=== PATIENT | male | born 2000 | race Caucasian/White ===

== ENCOUNTER 2022-01-04 11:20 | Emergency (ER) | payer BC, OTHER, SELFPAY ==
[2022-01-04 11:35] VITALS: BP 112/72; PULSE 77; RESP 12; TEMP 36.4; O2SAT 97; BMI 21.9
--- NOTE | 2022-01-04 11:48 | ED.GENADULT ---
HPI - General Adult General Time Seen by Provider: 11:48 Date Seen: 01/04/22 Chief complaint: Urogenital Problems, Male Stated complaint: Lump on genitals Time Seen by Provider: 01/04/22 11:43 Source: patient History of Present Illness HPI narrative: Buck is a 21 year old male with no past medical history, who presents to the ED with urogenital problem. 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 Is sexually active on Tuesday with a known partner, he was wearing condom protection. He had a similar lesion in 2019 out on his left side, that one has not been tender. they told him not to worry about it. this one is tender, palpation. Pain radiates up into his right groin area. There is some associated swelling but no redness. Patient denies any back pain, fevers, chills myalgias arthralgias. He has been taking ibuprofen for this. Related Data Previous Rx's Medication Instructions Recorded doxycycline monohydrate 100 mg 100 mg PO BID 10 days #20 caps 01/04/22 capsule Allergies Allergy/AdvReac Type Severity Reaction Status Date / Time amoxicillin Allergy Unknown Verified 01/04/22 11:40 Penicillins Allergy Unknown Verified 01/04/22 11:40 Review of Systems Status of ROS: Reports: 10 or more systems reviewed and unremarkable except as noted in History and below PFSH PFS Social History Smoking Status: Current every day smoker Do you use any of these nicotine containing products: Vaping Products How often do you have a drink containing alcohol: never AUDIT-C Alcohol total score: 0 Non-prescribed substance use: former substance user and marijuana (any form) Exam Narrative: Exam Narrative: General: No apparent distress, sitting comfortably HEENT: Pupils equal round reactive to light Lungs: Clear to auscultation bilaterally Heart: S1-S2 normal sinus rhythm Abdomen: Soft, nontender, bowel sounds present Urogenital: Tender to palpation the posterior epididymis, there is a palpable mass, upon further palpation does have swelling in the inguinal area. No penile lesions. Neuro: Alert awake and oriented x3 Const: Vital Signs, click to edit/add: Vital Signs - 24 hr 01/04/22 11:35 Temperature 97.5 F L Pulse Rate [Pulse Oximeter] 77 Respiratory Rate 12 Blood Pressure [Ri ght Upper Arm] 112/72 Pulse Oximetry 97 Oxygen Delivery Me thod Room Air Course Course Hospital Course: 12:00 PM: AIDET performed. Workup will include testicular ultrasound, less likely torsion, seems more related to a possible inguinal hernia versus epididymitis. Patient does not want anything for pain. Differential diagnosis include but not limited to direct or indirect hernia, epididymitis, orchitis, testicular torsion, testicular mass, testicular cancer, STI as well as other etiologies Reevaluation(s) Reevaluation #1: Patient was updated on his imaging results, he area of palpable concern corresponds to focal prominence of the body and tail of the right epididymis with hypervascularity most consistent with epididymitis. This was dictated by Boris Rojas MD at 1:23 p.m.. Patient is to receive 500 mg IM Rocephin and prescription for doxycycline 100 mg b.i.d. over the next 10 days, he should continue with scrotal support, Motrin or ibuprofen as needed for pain, ice packs to be applied to the area. He should follow up with his primary care provider over the next 7-10 days. Urinalysis as well as chlamydia and gonorrhea serology amplified DNA is pending. Time: 13:42 Vital Signs Vital signs: Initial Vital Signs Temperature 97.5 F L 01/04/22 11:35 Temperature Source Temporal Artery Scan 01/04/22 11:35 Pulse Rate 77 01/04/22 11:35 Pulse Rhythm 01/04/22 11:35 Respiratory Rate 12 01/04/22 11:35 Blood Pressure 112/72 01/04/22 11:35 Blood Pressure Mean 85 01/04/22 11:35 Blood Pressure Position Sitting 01/04/22 11:35 Pulse Oximetry 97 01/04/22 11:35 Oxygen Delivery Method 01/04/22 11:35 Vital Signs Temperature 97.5 F L 01/04/22 11:35 Pulse Rate 77 01/04/22 11:35 Respiratory Rate 12 01/04/22 11:35 Blood Pressure 112/72 01/04/22 11:35 Pulse Oximetry 97 01/04/22 11:35 Oxygen Delivery Method 01/04/22 11:35 Temperature 97.5 F L 01/04/22 11:35 Pulse Rate 77 01/04/22 11:35 Respiratory Rate 12 01/04/22 11:35 Blood Pressure 112/72 01/04/22 11:35 Pulse Oximetry 97 01/04/22 11:35 Oxygen Delivery Method 01/04/22 11:35 Medical Decision Making Lab Data Labs: Lab Results 01/04/22 Range/Units 12:55 Urine Color Yellow (Yellow) Urine Appearance Clear (Clear) Urine pH 7.0 (5.0-8.5) Ur Specific [place] 1.025 (1.000-1.030) Urine Protein Negative (Negative) Urine Glucose (UA) Negative (Negative) Urine Ketones Negative (Negative) Urine Blood Negative (Negative) Urine Nitrite Negative (Negative) Urine Bilirubin Negative (Negative) Urine Urobilinogen 0.2 (0.2-1.0) Ur Leukocyte Esterase Negative (Negative) Discharge Plan Discharge Clinical Impression: Epididymitis Patient Disposition: Home, Self-Care Condition: Improved Instructions: Epididymitis (ED) Additional Instructions: To follow up with a primary care provider in the next 7-10 days. Doxycycline 100 mg twice daily for the next 10 days. Continue with scrotal support, Motrin or Ibuprofen 400-600 mg every 4-6 hours for pain. Return if worsening symptoms. Prescriptions: New doxycycline monohydrate 100 mg capsule 100 mg PO BID 10 Days Qty: 20 0RF Stand Alone Forms: [employer] Info Instructions
--- NOTE | 2022-01-04 11:57 | CRLHL7_ITS ---
For Patients: As a result of the Century Cures Act, medical imaging exams and procedure reports are released immediately into your electronic medical record. You may view this report before your referring provider. If you have questions, please contact your health care provider. Indication: Posterior right scrotal mass. Technique: Sonography of the scrotum and its contents was performed. Doppler was also performed Comparison: None Findings: The right testis measures 4.4 x 2.1 x 2.6 centimeters. Left testis measures 4.5 x 1.9 x 2.8 centimeters. There is no testicular mass. Normal testicular Doppler without evidence of hyperemia or of torsion. No significant hydrocele and no varicocele on either side. Epididymal head cyst on the left measuring 1.7 x 1.5 x 2.3 centimeters. Heterogeneous enlargement of the body and tail of the epididymis apparently corresponding to the area of palpable concern. This is hypervascular likely representing epididymitis. Specifically recommend follow-up evaluation after presumptive treatment for epididymitis to ensure that this area returns to normal. Impression: The area of palpable concern corresponds to focal prominence of the body and tail of the right epididymis with hypervascularity most consistent with epididymitis. Follow-up evaluation after appropriate treatment is advised. Dictated by Boris Rojas MD @ 01/04/2022 1:23:47 PM (Electronically Signed)
[2022-01-04 13:03] LABS: Appearance Urine Clear (Clear); Bilirubin Urine Negative (Negative); Blood Urine Negative (Negative); Color Urine Yellow (Yellow); Glucose Urine Negative (Negative); Ketones Urine Negative (Negative); Leukocyte Esterase Urine Negative (Negative); Nitrite Urine Negative (Negative); Protein Urine Negative (Negative); Specific Gravity Urine 1.025 (1.000-1.030); Urobilinogen Urine 0.2 (0.2-1.0)
[2022-01-04] MEDS: LIDOCAINE 1% 5 ml (pf) 5 ML VIAL 0.9 ML IM (13:17)
[2022-01-04] MEDS: cefTRIAXone 250 MG VIAL IM ×2 (13:18→13:46)
[2022-01-04 15:00] LABS: GC DNA Amplified* NOT DETECTED (No Detected)
[2022-01-04 15:25] LABS: Chlamydia DNA Amplified* DETECTED (No Detected)
== END 2022-01-04 13:53 | disposition home or self-care (01) ==
PROVIDERS: Emergency Provider Student in an Organized Health Care Education/Training Program
DX: N45.1 Epididymitis (principal)
CPT/HCPCS: 76857; 76870; 81003; 87491; 87591; 93976; 96372; 99283; 99284; J0696

== ENCOUNTER 2022-09-06 14:07 | Outpatient (CLI) | payer BC, OTHER, SELFPAY ==
[2022-09-08 10:08] LABS: Chlamydia DNA Amplified* Not Detected (No Detected); GC DNA Amplified* Not Detected (No Detected)
== END 2022-09-06 14:08 | disposition home or self-care (01) ==
LOC: NFLDUCREF 14:08
PROVIDERS: Visit Provider Registered Nurse
DX: R30.9 Painful micturition, unspecified (principal)
CPT/HCPCS: 87086; 87491; 87591

== ENCOUNTER 2023-02-23 16:04 | Outpatient (CLI) | payer BC, SELFPAY ==
[2023-02-23 23:31] LABS: GC DNA Amplified* NOT DETECTED (No Detected)
[2023-02-24 00:01] LABS: Chlamydia DNA Amplified* DETECTED (No Detected)
== END 2023-02-23 16:05 | disposition home or self-care (01) ==
LOC: NFLDUCREF 16:04
PROVIDERS: Visit Provider Nurse Practitioner Family
DX: R10.2 Pelvic and perineal pain (principal)
CPT/HCPCS: 87491; 87591

== ENCOUNTER 2023-04-19 14:50 | Outpatient (CLI) | payer BC, SELFPAY ==
[2023-04-19 23:39] LABS: Chlamydia DNA Amplified* NOT DETECTED (No Detected); GC DNA Amplified* NOT DETECTED (No Detected)
== END 2023-04-19 14:51 | disposition home or self-care (01) ==
LOC: NFLDUCREF 14:51
PROVIDERS: Visit Provider Registered Nurse
DX: Z86.19 Personal history of other infectious and parasitic diseases (principal); Z11.3 Encounter for screening for infections with a predominantly sexual mode of transmission
CPT/HCPCS: 87491; 87591

== ENCOUNTER 2023-07-07 13:36 | Outpatient (CLI) | payer BC, SELFPAY ==
[2023-07-08 00:03] LABS: Chlamydia DNA Amplified* NOT DETECTED (No Detected); GC DNA Amplified* NOT DETECTED (No Detected)
== END 2023-07-07 13:37 | disposition home or self-care (01) ==
LOC: NFLDUCREF 13:37
PROVIDERS: Visit Provider Physician Assistant
DX: R30.0 Dysuria (principal)
CPT/HCPCS: 87491; 87591

== ENCOUNTER 2024-03-21 11:29 | Outpatient (CLI) | payer BC, SELFPAY ==
[2024-03-21 13:53] LABS: Chlamydia DNA Amplified* NOT DETECTED (No Detected); GC DNA Amplified* NOT DETECTED (No Detected)
== END 2024-03-21 11:30 | disposition home or self-care (01) ==
LOC: NFLDUCREF 11:30
PROVIDERS: Visit Provider Physician Assistant
DX: R30.0 Dysuria (principal); Z11.3 Encounter for screening for infections with a predominantly sexual mode of transmission
CPT/HCPCS: 87491; 87591

== ENCOUNTER 2024-06-19 12:51 | Outpatient (CLI) | payer BC, SELFPAY | END 2024-06-19 12:52 | disposition home or self-care (01) | LOC: NFLDREF 12:52 | PROVIDERS: Visit Provider Physician Assistant | DX: Z11.3 Encounter for screening for infections with a predominantly sexual mode of transmission (principal); A64 Unspecified sexually transmitted disease | CPT/HCPCS: 86592; 86703 ==

== ENCOUNTER 2024-06-19 12:51 | Outpatient (CLI) | payer BC, SELFPAY ==
[2024-06-19 23:30] LABS: Chlamydia DNA Amplified* NOT DETECTED (No Detected); GC DNA Amplified* NOT DETECTED (No Detected)
== END 2024-06-19 12:52 | disposition home or self-care (01) ==
PROVIDERS: Visit Provider Physician Assistant
DX: A64 Unspecified sexually transmitted disease (principal); Z11.3 Encounter for screening for infections with a predominantly sexual mode of transmission
CPT/HCPCS: 87491; 87591